=== PATIENT | male | born 1995 | race Caucasian/White ===

== ENCOUNTER 2019-03-06 16:45 | Emergency (ER) | payer OTHER ==
--- NOTE | 2019-03-06 16:47 | PDOC ---
Attending Attestation - Resident Resident Name: Tommy Hong - ED Attending Attestation I have performed the following: I have examined & evaluated the patient, The case was reviewed & discussed with the resident, I agree w/resident's findings & plan, Exceptions are as noted
[2019-03-06 17:01] VITALS: BP 109/70; PULSE 68; TEMP 98.6; BMI 27.2
--- NOTE | 2019-03-06 17:01 | PDOC ---
History of Present Illness - General Chief Complaint: Headache Stated Complaint: HEADACHE X 2 DAYS Time Seen by Provider: 03/06/19 16:46 History Source: Patient Exam Limitations: No Limitations - History of Present Illness Initial Comments: 03/06/19 17:01 Araceli Winn is an otherwise healthy 23M presenting with muscle aches and headache for 2 days. Patient reports 2 days of a headache and myalgias. The headache he describes as pain in his shoulders up his neck and into his posterior head, 8.5/10 in intensity, comes and goes, bad this morning but has resolved without medication at this time. Has had this headache before with high stress. Denies photosensitivity, neck stiffness, changes to vision, unsteady gait. Has had flu-like myalgias in his arms and legs but denies fever, chills, cough, nausea, vomiting, abdominal pain, constipation, diarrhea, urinary symptoms. PO intake is less than normal. Reports that his mother is caring for a baby and both are also sick at home. 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 NKDA. No other PMH, no medications, no PSH. Social alcohol and marijuana, no smoking or other drugs. Past History - Past Medical History Allergies/Adverse Reactions: Allergies Allergy/AdvReac Type Severity Reaction Status Date / Time No Known Allergies Allergy Verified 03/06/19 16:46 Home Medications: Ambulatory Orders Ibuprofen 800 mg PO TID PRN 7 Days #21 tablet 03/06/19 COPD: No CHF: No - Psycho Social/Smoking Cessation Hx Smoking History: Never smoked Hx Alcohol Use: Yes (OCASIONAL) Drug/Substance Use Hx: Yes (MARIJUANNA) Review of Systems - Review of Systems Constitutional: Yes: Loss of Appetite, Malaise. No: Chills, Fever, Night Sweats HEENTM: No: Blurred Vision, Throat Pain, Throat Swelling, Difficulty Swallowing Respiratory: No: Cough, Shortness of Breath, Wheezing Cardiac (ROS): No: Chest Pain, Edema, Lightheadedness, Palpitations, Syncope ABD/GI: Yes: Poor Appetite, Poor Fluid Intake. No: Constipated, Diarrhea, Nausea, Vomiting : No: Burning, Dysuria, Discharge, Frequency, Flank Pain, Hematuria, Incontinence, Pain, Urgency Musculoskeletal: Yes: Muscle Pain, Neck Pain. No: Joint Pain Integumentary: No: Symptoms Reported Neurological: Yes: Headache. No: Numbness, Paresthesia, Tingling, Tremors, Weakness, Unsteady Gait, Dizziness Psychiatric: Yes: Stressors Endocrine: No: Symptoms Reported Hematologic/Lymphatic: No: Symptoms Reported All Other Systems: Reviewed and Negative *Physical Exam - Vital Signs Last Vital Signs Temp Pulse Resp BP Pulse Ox 98.6 F 68 16 109/70 100 03/06/19 16:45 03/06/19 16:45 03/06/19 16:45 03/06/19 16:45 03/06/19 16:45 - Physical Exam General Appearance: Yes: Nourished, Appropriately Dressed. No: Apparent Distress HEENT: positive: EOMI, DELMY, Normal ENT Inspection, Normal Voice, Symmetrical, Pharynx Normal, Orbits, Hearing Grossly Normal, Other (no evidence of papilledema on eye exam concerning for increased ICP, no nystagmus). negative: Scleral Icterus (R), Scleral Icterus (L), Pharyngeal Erythema, Tonsillar Exudate , Tonsillar Erythema, Rhinorrhea, Lesions, [place] Neck: positive: Trachea midline, Normal Thyroid, Supple, Other (full ROM to neck without pain, some tenderness noted at the bases of the shoulders and back) . negative: Tender, Decreased range of motion, Lymphadenopathy (R), Lymphadenopathy (L) Respiratory/Chest: positive: Lungs Clear, Normal Breath Sounds. negative: Chest Tender, Respiratory Distress, Decreased Breath Sounds, Crackles, Rales, Rhonchi Cardiovascular: positive: Regular Rhythm, Regular Rate. negative: Murmur Gastrointestinal/Abdominal: positive: Normal Bowel Sounds, Flat, Soft. negative : Tender, Organomegaly, Guarding, Rebound Musculoskeletal: positive: Normal Inspection. negative: CVA Tenderness Extremity: positive: Normal Capillary Refill, Normal Inspection, Normal Range of Motion. negative: Tender Integumentary: positive: Normal Color, Dry, Warm Neurologic: positive: casing crew II-XII NML intact, Fully Oriented, Alert, Normal Mood/ Affect, Normal Response, Motor Strength 5/5 Medical Decision Making - Medical Decision Making 03/06/19 17:01 Araceli Winn is an otherwise healthy 23M presenting with muscle aches and headache for 2 days. Presentation is most concerning for meningitis vs. SAH vs. increased ICP. However, neurological exam does not show signs of meningismus, GRIMALDO is consistent with prior GRIMALDO, and no evidence of papilledema supports that none of these are present. Most likely cause of symptoms is a viral illness such as influenza vs. common cold, less likely to have arbovirus infection vs. malaria given no recent travel and no exposures at work. Patient is also stressed out and getting little sleep, which is likely contributing. Giving patient 800mh Motrin for GRIMALDO now, with script for 800mg tid for 7 days PRN. Patient refused IV fluids. Will send home with work note to get some rest given likely stress vs. viral illness with instructions to stay hydrated and see a PCP in the future. Discharge - Discharge Information Problems reviewed: Yes Clinical Impression/Diagnosis: Headache Qualifiers: Headache type: unspecified Headache chronicity pattern: acute headache Intractability: not intractable Qualified Code(s): R51 - Headache Condition: Stable Disposition: HOME - Admission No - Additional Discharge Information Prescriptions: Ibuprofen 800 mg PO TID PRN 7 Days #21 tablet PRN Reason: Headache - Follow up/Referral Referrals: Rafael Tavares MD [Staff Physician] - - Patient Discharge Instructions Patient Printed Discharge Instructions: DI for Headache Additional Instructions: Today you were evaluated for a headache and aches and pains. We have examined you and do not think you have a severe problem such as a brain bleed or meningitis. You most likely having symptoms of a flu or other viral problem given that your family is also sick. You are also under a lot of stress at work , and your lack of sleep is a surefire way to get sick and feel miserable. We gave you some Motrin here for your headache and pain, and have written a prescription for some Motrin that is not available over the counter. Please take it as needed, every 8 hours up to 3 per day. I have given you a work note to get off work until next Sunday. Please relax, drink a lot of fluids, eat a healthy diet, and take the Motrin as needed as you recover. I have also given you a referral to see our clinic if you need a primary doctor. If you feel worsening headache, have changes in your vision, chest pain, trouble breathing, fever, weakness in your arms or legs, become sensitive to light, have nausea or vomting, or have any other new or concerning symptoms, please return to the emergency room. - Post Discharge Activity Work/Back to School Note: Back to Work
[2019-03-06] MEDS ORDERED: IBUPROFEN 400 MG TABLET (FP) PO ONE ×2 (17:25→17:36)
== END 2019-03-06 17:46 | disposition home or self-care (01) ==
LOC: FER 16:45
DX: R51 Headache (principal)
CPT/HCPCS: 99281-25

== ENCOUNTER 2020-08-02 20:15 | Emergency (ER) | payer SELFPAY ==
[2020-08-02 20:28] VITALS: BP 110/69; PULSE 110; TEMP 98.3; BMI 27.9
[2020-08-02 22:05] LABS: BASO % 0.2 % (0-2.0); EOS % 1.1 % (0-4.5); HEMATOCRIT 45.7 % (35.4-49); HEMOGLOBIN 15.9 GM/dl (11.7-16.9); LYMPH % 7.6 % (8-40); MCH 31.5 pg (25.7-33.7); MCHC 34.8 g/dl (32.0-35.9); MEAN CELL VOLUME 90.3 fl (80-96); MEAN PLT VOLUME 8.4 fl (7.5-11.1); MONO % 5.1 % (3.8-10.2); PLATELET COUNT 249 K/MM3 (134-434); RBC 5.07 M/mm3 (4.00-5.60); RDW 11.6 % (11.9-15.9); WHITE BLOOD COUNT 15.7 K/mm3 (4.0-10.8)
[2020-08-02 22:16] LABS: ALBUMIN 4.6 g/dl (3.4-5.0); BILIRUBIN,TOTAL 0.6 mg/dl (0.2-1); CALCIUM 9.5 mg/dl (8.5-10); CREATININE 0.9 mg/dl (0.55-1.3); POTASSIUM 3.8 mmol/L (3.5-5.1); TOT PROT 7.8 g/dl (6.4-8.2)
[2020-08-02] MEDS ORDERED: ALBUTEROL SO4 2.5/IPRATROPIUM 0.5 INH SOL 3 ML VIAL.NEB. NEB ONE ×2 (22:19→22:20)
[2020-08-02] MEDS ORDERED: methylPREDNISolone NA SUCC 125 MG/2 ML VIAL IVPB ONE (22:51)
[2020-08-02] MEDS ORDERED: AZITHROMYCIN 500 MG TABLET PO ONE (22:52)
[2020-08-02] MEDS ORDERED: methylPREDNISolone NA SUCC 125 MG/2 ML VIAL IVPUSH ONE (22:52)
[2020-08-02] MEDS ORDERED: methylPREDNISolone NA SUCC 125 MG/2 ML VIAL ONE (22:54)
[2020-08-02] MEDS ORDERED: AZITHROMYCIN 250 MG TABLET ONE (22:54)
== END 2020-08-02 23:06 | disposition home or self-care (01) ==
LOC: FER 20:15
PROC: 3E0F7GC Introduction of Other Therapeutic Substance into Respiratory Tract, Via Natural or Artificial Opening (ICD-10-PCS; principal; 2020-08-02)
PROC: 3E033GC Introduction of Other Therapeutic Substance into Peripheral Vein, Percutaneous Approach (ICD-10-PCS; 2020-08-02)
DX: J20.9 Acute bronchitis, unspecified (principal)
CPT/HCPCS: 36415; 71046-TC-FY; 80053; 82550; 82553; 84484; 85025; 93005; 99285-25

== ENCOUNTER 2020-09-26 08:44 | Emergency (ER) | payer SELFPAY ==
[2020-09-26 08:59] VITALS: BP 121/54; TEMP 97.9; BMI 28.7
[2020-09-26] MEDS ORDERED: predniSONE 20 MG TABLET (UD) PO ONE (09:04)
[2020-09-26] MEDS ORDERED: predniSONE 20 MG TABLET (UD) ONE (09:14)
[2020-09-26] MEDS ORDERED: ALBUTEROL SO4 2.5/IPRATROPIUM 0.5 INH SOL 3 ML VIAL.NEB. NEB ONE (09:14)
[2020-09-26] MEDS: ALBUTEROL SO4 2.5/IPRATROPIUM 0.5 INH SOL 3 ML VIAL.NEB. NEB SCH (09:17)
[2020-09-26 10:10] VITALS: PULSE 98
== END 2020-09-26 10:16 | disposition home or self-care (01) ==
LOC: FER 08:44
PROC: 3E0F7GC Introduction of Other Therapeutic Substance into Respiratory Tract, Via Natural or Artificial Opening (ICD-10-PCS; principal; 2020-09-26)
DX: R06.2 Wheezing (principal); Z71.6 Tobacco abuse counseling; Z11.52 Encounter for screening for COVID-19
CPT/HCPCS: 71046-TC-FY; 99284-25; C9803; U0003; U0005

== ENCOUNTER 2021-01-11 04:57 | Emergency (ER) | payer OTHER ==
[2021-01-11] MEDS ORDERED: predniSONE 20 MG TABLET (UD) PO ONE (05:11)
[2021-01-11] MEDS ORDERED: ALBUTEROL SO4 2.5/IPRATROPIUM 0.5 INH SOL 3 ML VIAL.NEB. NEB ONE ×4 (05:11→05:21)
[2021-01-11 05:13] VITALS: BP 130/84; PULSE 88; TEMP 97.8; BMI 29.2
[2021-01-11] MEDS ORDERED: predniSONE 20 MG TABLET (UD) ONE (05:21)
[2021-01-11] MEDS ORDERED: ALBUTEROL SO4 0.083% IH SOL 2.5 MG/3 ML VIAL.NEB. NEB ONE ×2 (06:47→06:48)
[2021-01-12 14:09] LABS: SARS-CoV-2 NAA Not Detected (Not Detected)
== END 2021-01-11 07:32 | disposition home or self-care (01) ==
LOC: FER 04:57
PROC: 3E0F7GC Introduction of Other Therapeutic Substance into Respiratory Tract, Via Natural or Artificial Opening (ICD-10-PCS; principal; 2021-01-11)
PROC: 3E0F7GC Introduction of Other Therapeutic Substance into Respiratory Tract, Via Natural or Artificial Opening (ICD-10-PCS; 2021-01-11)
PROC: 3E0F7GC Introduction of Other Therapeutic Substance into Respiratory Tract, Via Natural or Artificial Opening (ICD-10-PCS; 2021-01-11)
DX: J98.01 Acute bronchospasm (principal); Z11.52 Encounter for screening for COVID-19
CPT/HCPCS: 99283-25; C9803; U0003; U0005

== ENCOUNTER 2021-04-11 03:56 | Emergency (ER) | payer OTHER ==
[2021-04-11 04:03] VITALS: BP 125/83; PULSE 98; TEMP 98.9; BMI 29.4
[2021-04-11] MEDS ORDERED: ALBUTEROL SO4 2.5/IPRATROPIUM 0.5 INH SOL 3 ML VIAL.NEB. NEB ONE ×2 (04:07→04:08)
[2021-04-11] MEDS ORDERED: DEXAMETHASONE 4 MG TABLET (FP) ONE (04:07)
[2021-04-11] MEDS ORDERED: DEXAMETHASONE 4 MG TABLET (FP) PO ONE (04:08)
[2021-04-11] MEDS ORDERED: TERBUTALINE SULFATE 1 MG/1 ML VIAL SQ ONE (04:39)
[2021-04-11] MEDS ORDERED: AZITHROMYCIN 500 MG TABLET PO ONE (04:40)
[2021-04-11] MEDS ORDERED: AZITHROMYCIN 250 MG TABLET ONE (04:44)
== END 2021-04-11 04:56 | disposition home or self-care (01) ==
LOC: FER 03:56
PROC: 3E0F7GC Introduction of Other Therapeutic Substance into Respiratory Tract, Via Natural or Artificial Opening (ICD-10-PCS; principal; 2021-04-11)
DX: J18.9 Pneumonia, unspecified organism (principal)
CPT/HCPCS: 71046-TC-FY; 99284-25

== ENCOUNTER 2021-06-25 07:22 | Emergency (ER) | payer OTHER ==
[2021-06-25 07:36] VITALS: BP 105/82; PULSE 93; TEMP 97.9; BMI 30.8
[2021-06-25] MEDS ORDERED: ALBUTEROL SO4 0.042% IH SOL 1.25 MG/3 ML VIAL.NEB NEB ONE (07:47)
[2021-06-25] MEDS ORDERED: predniSONE 20 MG TABLET (UD) PO ONE (07:47)
[2021-06-25] MEDS ORDERED: ALBUTEROL SO4 0.083% IH SOL 2.5 MG/3 ML VIAL.NEB. NEB ONE (07:50)
[2021-06-25] MEDS ORDERED: predniSONE 20 MG TABLET (UD) ONE (07:50)
== END 2021-06-25 08:38 | disposition home or self-care (01) ==
LOC: FER 07:22
PROC: 3E0F7GC Introduction of Other Therapeutic Substance into Respiratory Tract, Via Natural or Artificial Opening (ICD-10-PCS; principal; 2021-06-25)
DX: J45.901 Unspecified asthma with (acute) exacerbation (principal); J06.9 Acute upper respiratory infection, unspecified
CPT/HCPCS: 87804; 99284-25; C9803; U0003; U0005